=== PATIENT | male | born 1955 | race Asian ===

== ENCOUNTER 2018-10-10 08:09 | Day surgery (SDC) | payer BC ==
[~2018-10-10 08:09] MED LIST: CEFAZOLIN 1 GM INJ
[2018-10-10] MEDS: CYCLOPENTOLATE 2% 2 ML OPH OPER ×3 (10:25→10:36)
[2018-10-10] MEDS: BROMFENAC SODIUM 1.7 ML OPH DROP OPER ×3 (10:25→10:36)
[2018-10-10] MEDS: PHENYLephrine 10% 5 ML OPH OPER ×3 (10:26→10:36)
[2018-10-10] MEDS: TETRACAINE 0.5% 4 ML OPH OPER ×4 (10:26→15:02)
[2018-10-10] MEDS: MOXIFLOXACIN 0.5% 3 ML OPH OPER ×3 (10:26→10:36)
[2018-10-10] MEDS: TROPICAMIDE 1% 3 ML OPH OPER ×3 (10:27→10:36)
[2018-10-10] MEDS: LACTATED RINGER'S 1,000 ML IV (10:27)
[2018-10-10] MEDS: LIDOCAINE 3.5% GEL TUBE OPER (10:33)
[2018-10-10] MEDS ORDERED: DIPHENHYDRAMINE 50 MG INJ IV (12:00)
[2018-10-10] MEDS ORDERED: ONDANSETRON 4 MG INJ IV (12:00)
[2018-10-10] MEDS ORDERED: hydrALAzine 20 MG INJ IV (12:00)
[2018-10-10] MEDS ORDERED: ACETAMINOPHEN 500 MG TAB PO (12:00)
[2018-10-10] MEDS ORDERED: LABETALOL HCL 20MG INJ IV (12:00)
[2018-10-10] MEDS ORDERED: ACETAMINOPHEN 325 MG TAB PO (12:00)
[2018-10-10] MEDS ORDERED: ALBUTEROL 0.083% (NEB) 2.5 MG/3 ML AMP HHN (12:00)
[2018-10-10] MEDS ORDERED: OXYCODONE/ACETAMINOPHEN (5/325) TAB PO (12:00)
[2018-10-10] MEDS ORDERED: MIDAZOLAM 1 MG/ML 2 ML INJ (13:22)
[2018-10-10] MEDS ORDERED: TRYPAN BLUE 0.5 ML SYG IO (13:43)
[2018-10-10] MEDS: LIDOCAINE 1%/EPI 30 ML INJ INJ (15:02)
[2018-10-10] MEDS: TOBRAMYCIN/DEXAMETH 3.5 GM OPH OINT (15:03)
== END 2018-10-10 16:24 | disposition home or self-care (01) ==
LOC: SDS 08:09
DX: H25.89 Other age-related cataract (principal); I10 Essential (primary) hypertension; E11.319 Type 2 diabetes mellitus with unspecified diabetic retinopathy without macular edema; E78.2 Mixed hyperlipidemia
CPT/HCPCS: 66984; 82962

== ENCOUNTER 2018-11-15 09:15 | Day surgery (SDC) | payer MEDICARE, BC ==
[~2018-11-15 09:15] MED LIST changes: -CEFAZOLIN 1 GM INJ; +ESMOLOL 100 MG INJ; +LACTATED RINGER'S 1,000 ML IV
[2018-11-15] MEDS ORDERED: CARBACHOL 0.01% 1.5 ML OPH INJ (09:22)
[2018-11-15] MEDS: MOXIFLOXACIN 0.5% 3 ML OPH OPER (09:54)
[2018-11-15] MEDS: TRYPAN BLUE 0.5 ML SYG IO (09:55)
[2018-11-15] MEDS: BROMFENAC SODIUM 1.7 ML OPH DROP OPER (09:55)
[2018-11-15] MEDS: EPINEPHrine 1 MG INJ (09:55)
[2018-11-15] MEDS: LIDOCAINE 1.5%/EPI MPF (SDV) 30 ML VIAL INJ (09:56)
[2018-11-15] MEDS: PHENYLephrine 10% 5 ML OPH OPER (09:56)
[2018-11-15] MEDS ORDERED: MIDAZOLAM 1 MG/ML 2 ML INJ (09:57)
[2018-11-15] MEDS: TETRACAINE 0.5% 4 ML OPH (09:59)
[2018-11-15] MEDS ORDERED: LABETALOL HCL 20MG INJ IV (10:00)
[2018-11-15] MEDS ORDERED: ONDANSETRON 4 MG INJ IV (10:00)
[2018-11-15] MEDS ORDERED: hydrALAzine 20 MG INJ IV (10:00)
[2018-11-15] MEDS ORDERED: FENTAnyl 50 MCG/ML VIAL IV (10:00)
[2018-11-15] MEDS: CYCLOPENTOLATE 2% 2 ML OPH OPER (10:00)
[2018-11-15] MEDS ORDERED: ACETAMINOPHEN 500 MG TAB PO (10:00)
[2018-11-15] MEDS ORDERED: ACETAMINOPHEN 325 MG TAB PO (10:00)
[2018-11-15] MEDS ORDERED: DIPHENHYDRAMINE 50 MG INJ IV (10:00)
[2018-11-15] MEDS ORDERED: OXYCODONE/ACETAMINOPHEN (5/325) TAB PO (10:00)
[2018-11-15] MEDS ORDERED: ALBUTEROL 0.083% (NEB) 2.5 MG/3 ML AMP HHN (10:00)
[2018-11-15] MEDS: TROPICAMIDE 1% 15 ML OPH OPER (10:01)
[2018-11-15] MEDS: TETRACAINE 0.5% 4 ML OPH OPER (10:03)
[2018-11-15] MEDS: LIDOCAINE 3.5% GEL TUBE OPER (10:03)
[2018-11-15] MEDS ORDERED: CEFAZOLIN 1 GM INJ (10:51)
== END 2018-11-15 13:08 | disposition home or self-care (01) ==
LOC: SDS 09:15
DX: E11.9 Type 2 diabetes mellitus without complications (principal); I10 Essential (primary) hypertension; E78.5 Hyperlipidemia, unspecified
CPT/HCPCS: 66984; 82962